=== PATIENT | female | born 1975 | race African-American/Black ===

== ENCOUNTER 2018-02-02 23:02 | Emergency (ER) | payer SELFPAY ==
[~2018-02-02] VITALS: Ht 180.3 cm; Wt 107.2 kg
[2018-02-03] MEDS ORDERED: IBUPROFEN 600MG TABLET PO ONE (01:30)
[2018-02-03] MEDS ORDERED: PENICILLIN G BENZATHINE 1,200,000 UNITS/2ML SYR IM ONE (01:30)
[2018-02-03 02:22] VITALS: BP 118/92
== END 2018-02-03 02:27 | disposition home or self-care (01) ==
LOC: ER 23:02
DX: J02.0 Streptococcal pharyngitis (principal); Z98.890 Other specified postprocedural states
CPT/HCPCS: 96372; 99283; J0561